=== PATIENT | female | born 2005 | race Hispanic/Latino ===

== ENCOUNTER → 2024-10-08 | Outpatient (CLI) | payer MEDICAID ==
[~2024-10-08] MED LIST: IOHEXOL-350 75 ML VIAL IV ONE
--- NOTE | 2024-10-08 10:05 | HMCIMG ---
CT ABDOMEN/PELVIS W/WO CONTRAS HISTORY: Lower abdominal pain COMPARISON: None TECHNIQUE: Multiple sequential axial images of the abdomen and pelvis were obtained from the dome of the diaphragm through symphysis pubis. Patient was not given contrast through intravenous route. Oral contrast was given. FINDINGS: No pleural effusion is seen bilaterally. There is no evidence of parenchymal disease or pulmonary nodule of the visualized lower lungs. Degenerative changes of the thoracolumbar spine are present. The heart is not enlarged. There are motion artifacts degrading the image quality. No bowel obstruction is seen. The liver, spleen, adrenal glands and pancreas are unremarkable. There is no evidence of hydronephrosis bilaterally. No evidence of renal stone is seen. Fecal material is seen in the colon. There are normal size retroperitoneal and mesenteric lymph nodes. No ascites is seen. Atherosclerotic changes are present. Pelvic sidewalls are symmetric bilaterally. Bladder is well distended without wall thickening. IMPRESSION: 1. Motion artifact artifacts degrading the image quality. Colonic distention is seen. No bowel obstruction is seen. Large amount of fecal material is seen in the colon. CT was performed with one or more following dose reduction techniques: automated exposure control, adjustment of the mA and kv according to patient's size, or use of a iterative reconstruction technique.
== END | disposition home or self-care (01) ==
LOC: RAH 07:46
PROVIDERS: ATTEND Internal Medicine Gastroenterology
DX: K63.89 Other specified diseases of intestine (principal); K56.41 Fecal impaction; M47.815 Spondylosis without myelopathy or radiculopathy, thoracolumbar region; R10.30 Lower abdominal pain, unspecified
CPT/HCPCS: 74178; Q9967